=== PATIENT | female | born 1950 | race Caucasian/White ===

== ENCOUNTER 2018-10-02 12:05 | Emergency (ER) | payer OTHER ==
[~2018-10-02] VITALS: Ht 170.2 cm; Wt 113.4 kg
--- NOTE | 2018-10-02 12:27 | PHYS DOC ---
Past Medical History Past Medical History: CAD, Diabetes-Type II Past Surgical History: Angioplasty Smoking: Cigarettes (The patient is a nonsmoker.) Adult General Chief Complaint Chief Complaint: KNEE INJURY HPI HPI Patient is a 67 old female who presents to the emergency department for evaluation. She was serving food, and had a train each hand, when she tripped over a rug and fell to the ground, injuring her right knee. She sustained superficial abrasion but is unable to bear weight or flex her knee secondary to pain. The pain seems to be centered along the medial aspect of her knee, as well as on the proximal tibial area. She also sustained a superficial abrasion on her left forearm without any other painful areas. She did not hit her head with any force, denies any other painful areas, denies any headache, or neck pain, numbness, or weakness. Tendon movement seems to worsen her pain. There are no alleviating factors to her symptoms. Patient declines the need for pain medication at this time. Patient states her tetanus is up-to-date. Review of Systems Review of Systems Respiratory: Denies cough or shortness of breath [] Cardiovascular: Eyes chest pain, dizziness or lightheadedness [] GI: Denies abdominal pain, nausea, vomiting, bloody stools or diarrhea [] : Denies dysuria or hematuria [] Musculoskeletal: Denies neck pain, back pain or joint pain except as noted in the history of present illness [] Integument: Denies rash or skin lesions [] Neurologic: Denies headache, focal weakness or sensory changes [] Allergies Allergies Allergies Coded Allergies Type Severity Reaction Last Updated Verified Penicillins Allergy Unknown 10/02/18 Yes Physical Exam Physical Exam PHYSICAL EXAM: CONSTITUTIONAL: Well developed, well nourished HEAD: normocephalic, atraumatic EENT: PERRL, EOMI. Conjunctivae normal color, sclerae non-icteric; moist mucous membranes. NECK: Supple, non-tender; no meningismus.There is full, painless range of motion of the cervical spine, without any focal bony midline tenderness to palpation. LUNGS: Lungs CTA, breathing even and unlabored. Normal air movement. HEART: Regular rate and rhythm, no murmur CHEST: No deformity; non-tender ABDOMEN: The abdomen is soft, and non-tender, no masses or bruits. EXTREM: There is a superficial abrasion on the left forearm without any bony tenderness to palpation. There is a carpet burn/superficial abrasion on the anterior aspect of the right knee, which is diffusely tender to palpation, most prominently in the proximal tibial area, there is no definite ligamentous laxity to anterior, posterior, medial, or lateral stress. The remainder the ex tremities are atraumatic, with Normal ROM; no deformity, no calf tenderness. Normal pulses palpable in all extremities. There is no pedal edema. SKIN: No rash; no diaphoresis NEURO: Alert; normal speech and cognition; CN's grossly intact; strength grossly intact without focal deficit. BACK: No CVA TTP. Current Patient Data Vital Signs Vital Signs Date Time Temp Pulse Resp B/P (MAP) Pulse Ox O2 Delivery O2 Flow Rate FiO2 10/02/18 12:17 98.1 73 18 115/58 (77) 95 Room Air 98.1 EKG EKG [] Radiology/Procedures Radiology/Procedures PROCEDURE: KNEE RIGHT 3V EXAM: Right knee, 3 views. HISTORY: Pain. Fall. COMPARISON: None. FINDINGS: 3 views of the right knee are obtained. There is mild medial compartment joint space narrowing and mild medial and patellofemoral compartment spurring. There is a small joint effusion. There is minimal enthesopathy along the superior patella. IMPRESSION: 1. Mild medial and patellofemoral compartment osteoarthritis of the right knee. 2. Small right knee effusion.[] PROCEDURE: CT LOWER EXTREMITY WO RIGHT STUDY: CT right lower extremity without contrast INDICATION: Knee injury with pain. Concern for occult fracture. COMPARISON: Same day right knee radiographs. TECHNIQUE: Axial CT imaging of the right knee without contrast. Sagittal and coronal reformats were obtained. FINDINGS: Occult by radiography is a nondisplaced, vertically oriented fracture through the lateral aspect of the patella. This is well seen on coronal image 11 series 8. No additional fracture identified. Mild to moderate tricompartmental osteoarthrosis with a predilection for the medial compartment where there is joint space narrowing as well as subchondral sclerosis and cyst formation. Ossified focus measuring 1 cm located posterior to the medial femoral condyle could represent a loose body or an intrameniscal ossification given its location. Prominent sized knee joint effusion likely containing some hemorrhage. The cruciate ligaments appear grossly intact. IMPRESSION: 1. Nondisplaced fracture of the lateral aspect of the patella with an associated prominent knee joint effusion containing some hemorrhage. No additional fracture seen. 2. Tricompartmental osteoarthrosis with a predilection for the medial femorotibial compartment where there is subchondral sclerosis and cyst formation. 3. There is a 1 cm ossification along the posterior aspect of the medial femoral condyle, either a chronic loose body or intrameniscal ossification. Course & Med Decision Making Course & Med Decision Making Pertinent Imaging studies reviewed. (See chart for details) []1:50 PM: The patient's condition remains stable. Discussed test results, the need for orthopedic follow-up and further evaluation to exclude ligamentous injury, and return precautions Dragon Disclaimer Dragon Disclaimer This electronic medical record was generated, in whole or in part, using a voice recognition dictation system. Departure Departure Impression: Primary Impression: Patellar fracture Additional Impression: Internal derangement of knee Disposition: 01 HOME, SELF-CARE Condition: STABLE Referrals: RUBIO AYALA MD Patient Instructions: Combined Knee Ligament Sprain-SportsMed, Crutch Use, Knee Immobilizer-Brief, Patellar Fracture, Adult Additional Instructions: Use the knee immobilizer for weightbearing until instructed by an orthopedic surgeon to remove. Applying ice to the affected area may help improve your symptoms. The prescribed pain medication may cause drowsiness. Use caution while taking. Further evaluation of your knee, likely with an MRI, is required to rule out a ligamentous injury. Scripts Hydrocodone/Apap 5-325 (NORCO 5-325 TABLET) 1 Each Tablet 1 TAB PO TID PRN for PAIN, #15 TAB Prov: SAVANNAH SOSA MD 10/02/18 Problem Qualifiers SAVANNAH SOSA MD Oct 02, 2018 12:27
--- NOTE | 2018-10-02 12:42 | RAD ---
EXAM: Right knee, 3 views. HISTORY: Pain. Fall. COMPARISON: None. FINDINGS: 3 views of the right knee are obtained. There is mild medial compartment joint space narrowing and mild medial and patellofemoral compartment spurring. There is a small joint effusion. There is minimal enthesopathy along the superior patella. IMPRESSION: 1. Mild medial and patellofemoral compartment osteoarthritis of the right knee. 2. Small right knee effusion. Electronically signed by: Darleen Cavanaugh MD (10/02/2018 12:40 PM) [email or web address]
--- NOTE | 2018-10-02 13:19 | RAD ---
STUDY: CT right lower extremity without contrast INDICATION: Knee injury with pain. Concern for occult fracture. COMPARISON: Same day right knee radiographs. TECHNIQUE: Axial CT imaging of the right knee without contrast. Sagittal and coronal reformats were obtained. FINDINGS: Occult by radiography is a nondisplaced, vertically oriented fracture through the lateral aspect of the patella. This is well seen on coronal image 11 series 8. No additional fracture identified. Mild to moderate tricompartmental osteoarthrosis with a predilection for the medial compartment where there is joint space narrowing as well as subchondral sclerosis and cyst formation. Ossified focus measuring 1 cm located posterior to the medial femoral condyle could represent a loose body or an intrameniscal ossification given its location. Prominent sized knee joint effusion likely containing some hemorrhage. The cruciate ligaments appear grossly intact. IMPRESSION: 1. Nondisplaced fracture of the lateral aspect of the patella with an associated prominent knee joint effusion containing some hemorrhage. No additional fracture seen. 2. Tricompartmental osteoarthrosis with a predilection for the medial femorotibial compartment where there is subchondral sclerosis and cyst formation. 3. There is a 1 cm ossification along the posterior aspect of the medial femoral condyle, either a chronic loose body or intrameniscal ossification. Electronically signed by: SOBEIDA AKINS MD (10/02/2018 1:16 PM) [email or web address]
[2018-10-02 13:38] VITALS: BP 140/60
[2018-10-02] MEDS ORDERED: HYDR-3164 PO (13:56)
== END 2018-10-02 14:20 | disposition home or self-care (01) ==
LOC: ER 12:05
DX: S82.001A Unspecified fracture of right patella, initial encounter for closed fracture (principal); S50.812A Abrasion of left forearm, initial encounter; W18.09XA Striking against other object with subsequent fall, initial encounter; Y93.89 Activity, other specified; Y92.89 Other specified places as the place of occurrence of the external cause; Y99.8 Other external cause status; Z88.0 Allergy status to penicillin; E11.9 Type 2 diabetes mellitus without complications; I25.10 Atherosclerotic heart disease of native coronary artery without angina pectoris; Z95.5 Presence of coronary angioplasty implant and graft
CPT/HCPCS: 29505; 73562; 73700; 99284